=== PATIENT | female | born 1990 | race Caucasian/White ===

== ENCOUNTER 2016-09-10 22:12 | Emergency (ER) | payer BC, MEDICAID ==
[~2016-09-10] VITALS: Ht 152.4 cm; Wt 45.5 kg
[~2016-09-10 22:12] MED LIST: BENADRYL ALLERG25 M2 PO; CEPHALEXIN250 M1 PO; INDERAL LA 60MG60 M1 PO; PEPCID AC10 M2 PO; TRIAMCINOLONE A15 G1 TP; TYLENOL 325MG325 MG PO; ZOFRAN4 M1 PO; ZYRTEC10 M3 PO
[2016-09-11 01:29] VITALS: BP 147/80
== END 2016-09-11 01:29 | disposition home or self-care (01) ==
LOC: ED 22:12
DX: R10.31 Right lower quadrant pain (principal); I10 Essential (primary) hypertension; G43.909 Migraine, unspecified, not intractable, without status migrainosus; D64.9 Anemia, unspecified
CPT/HCPCS: J7030